=== PATIENT | female | born 1975 ===

== ENCOUNTER → 2024-09-12 06:55 | Outpatient (CLI) | payer OTHER ==
[2024-09-12 08:03] LABS: BASO % 1.1 % (0.1-1.2); EOS # 0.16 (0.04-0.54); EOS % 2.6 % (0.7-7.0); HEMATOCRIT 39.1 % (34.1-44.9); HEMOGLOBIN 13.2 g/dL (11.2-15.7); LYMPH # 1.97 (1.18-3.74); LYMPH % 31.7 % (19.3-53.1); MEAN CORPUSCULAR HEMOGLOBIN 30.2 pg (25.6-32.2); MONO # 0.59 (0.24-0.82); MONO % 9.5 % (4.7-12.5); NEUT # 3.41 (1.56-6.13); NEUT % 54.8 % (34.0-71.1); PLATELET COUNT 278 K/uL (163-369); RED BLOOD COUNT 4.37 M/uL (3.93-5.22); RED CELL DISTRIBUTION WIDTH 12.4 % (11.6-14.4)
[2024-09-12 08:04] LABS: URINE APPEARANCE Clear; URINE BILIRRUBIN Negative (NEGATIVE); URINE BLOOD Negative; URINE COLOR Yellow; URINE GLUCOSE Negative (NEGATIVE); URINE KETONE Negative (NEGATIVE); URINE LEUKOCYTE Negative; URINE NITRATE Negative; URINE PROTEIN Negative (NEGATIVE); URINE UROBILINOGEN 0.2 E.U./dl
[2024-09-12 08:07] LABS: URINE BACTERIA 112.5 uL (0.0-1933); URINE RBC 3.5 uL (0.0-20.8); URINE WBC 3.7 uL (0.0-23.2)
[2024-09-12 08:13] LABS: URINE CAST 0.14 uL (0.0-1.40)
[2024-09-12 08:29] LABS: CHOL HDL RATIO 3.2 (0-5.0)
[2024-09-12 08:38] LABS: ALBUMIN 3.8 gm/dL (3.4-5.0); BILIRUBIN TOTAL 0.72 mg/dL (0.3-1.2); CALCIUM 9.4 mg/dL (8.5-10.1); CREATININE SERUM 0.67 mg/dL (0.55-1.02); FREE TRIODOTIRONINE 2.73 pg/ml (2.18-3.98); GFR 92.79; GLOBULINA 3.8 G/DL (2.4-3.5); POTASSIUM 4.23 mEq/L (3.5-5.1); T4 FREE 0.97 NG/ML (0.76-1.46); TOTAL PROTEIN 7.6 gm/dL (6.4-8.2); TSH 1.88 uIU/mL (0.358-3.74)
== END | disposition home or self-care (01) ==
LOC: LAB 06:55
PROVIDERS: ATTEND Obstetrics & Gynecology
DX: E16.2 Hypoglycemia, unspecified (principal); N39.0 Urinary tract infection, site not specified; E78.2 Mixed hyperlipidemia; E56.9 Vitamin deficiency, unspecified; E55.9 Vitamin D deficiency, unspecified; E03.9 Hypothyroidism, unspecified; R97.1 Elevated cancer antigen 125 [CA 125]; R53.1 Weakness; E66.01 Morbid (severe) obesity due to excess calories; Z11.3 Encounter for screening for infections with a predominantly sexual mode of transmission; D68.9 Coagulation defect, unspecified

== ENCOUNTER → 2024-10-01 07:40 | Outpatient (CLI) | payer OTHER | END | disposition home or self-care (01) | LOC: NUCLEAR 07:40 | PROVIDERS: ATTEND Obstetrics & Gynecology | DX: M81.0 Age-related osteoporosis without current pathological fracture (principal) ==